=== PATIENT | male | born 1970 | race African-American/Black ===

== ENCOUNTER 2016-08-26 12:13 | Inpatient (IN) | payer OTHER ==
[2016-08-26 13:29] VITALS: BMI 31.0
--- NOTE | 2016-08-26 14:19 | HP ---
Admission ROS [facility] - [facility] Chief Complaint: i need help help to stay in rehab from alcohol,cocaine and marijuana Allergies/Adverse Reactions: Allergies Allergy/AdvReac Type Severity Reaction Status Date / Time Penicillins Allergy Intermediate Hives Verified 08/26/16 14:01 History of Present Illness: this 45 years old male with alcohol,cocaine and marijuana dependence,seeking help for rehab,last treatment in 2012 [facility] nicotine dependence paranoid schizophrenia Exam Limitations: No Limitations - Ebola screening Have you traveled outside of the country in the last 21 days: No Have you had contact with anyone from an Ebola affected area: No Have you been sick,other than usual withdrawal symptoms: No - Review of Systems Constitutional: No Symptoms Reported, Loss of Appetite, Malaise, Changes in sleep EENT: reports: No Symptoms Reported Respiratory: reports: No Symptoms reported, Other (asthma) Cardiac: reports: No Symptoms Reported GI: reports: No Symptoms Reported : reports: No Symptoms Reported Musculoskeletal: reports: No Symptoms Reported, Other (pain in both knees and hips) Integumentary: reports: No Symptoms Reported Patient History - Patient Medical History Hx Anemia: No Hx Asthma: Yes (on albuterol inhaler) Hx Cancer: No Hx Cardiac Disorders: No Hx Congestive Heart Failure: No Hx Hypertension: No Hx Hypercholesterolemia: No Hx Pacemaker: No HX Cerebrovascular Accident: No Hx Seizures: No Hx Dementia: No Hx Diabetes: Yes (no med) Hx Gastrointestinal Disorders: No Hx Liver Disease: No Hx Genitourinary Disorders: No Hx Sexually Transmitted Disorders: No Hx Renal Disease (ESRD): No Hx Thyroid Disease: No Hx Human Immunodeficiency Virus (HIV): No (last 2015) Hx Hepatitis C: No Hx Depression: Yes (on meds) Hx Suicide Attempt: Yes (cut throat in 2003,s/p traheostomy in [facility]) Hx Bipolar Disorder: No Hx Schizophrenia: No Other Medical History: no suicidal,no homicidal - Patient Surgical History Past Surgical History: Yes Other Surgical History: laceration of throat,s/p surgery and tracheostomy - PPD History Previous Implant?: Yes Documented Results: Negative w/o proof PPD to be Administered?: Yes - Smoking Cessation Smoking history: Current every day smoker Have you smoked in the past 12 months: Yes Aproximately how many cigarettes per day: 10 Hx Chewing Tobacco Use: No Initiated information on smoking cessation: Yes 'Breaking Loose' booklet given: 08/26/16 - Substance & Tx. History Hx Alcohol Use: Yes Hx Substance Use: Yes Substance Use Type: Alcohol, Cocaine, Marijuana Hx Substance Use Treatment: Yes (2012 [facility]) - Substances Abused Alcohol Route: Oral Frequency: Daily (1pint of vodka/) Amount used: 1 pint of vodka/40 ozs of beer Age of first use: 16 Date of Last Use: 08/25/16 Cocaine Route: Smoking Frequency: Daily Amount used: 100$ Age of first use: 21 Date of Last Use: 08/25/16 Marijuana/Hashish Route: Smoking Amount used: 10$ Age of first use: 16 Date of Last Use: 08/25/16 Family Disease History - Family Disease History Family History: Denies Family Disease History: Diabetes: Grandparent, Mother, Other: Father (alcohol, ), Mother Admission Physical Exam [facility] - Vital Signs Vital Signs: Vital Signs - 24 hr 08/26/16 13:27 Temperature 96.8 F L Pulse Rate 86 Respiratory 18 Rate Blood Pressure 135/72 - Physical General Appearance: Yes: Within Normal Limits HEENTM: Yes: Within Normal Limits, LOTUS, Pharynx Normal (scar of neck s/p tracheostomy), Other Respiratory: Yes: Lungs Clear, Normal Breath Sounds, No Respiratory Distress Neck: Yes: Within Normal Limits, Other (scar anterior of neck scar from previous tracheostomy) Breast: Yes: Within Normal Limits Cardiology: Yes: Within Normal Limits, Regular Rhythm, Regular Rate, S1, S2 Abdominal: Yes: Within Normal Limits, Normal Bowel Sounds, Non Tender, Flat, Soft Genitourinary: Yes: Within Normal Limits Back: Yes: Muscle Spasm Musculoskeletal: Yes: Within Normal Limits Extremities: Yes: Within Normal Limits Neurological: Yes: staff auditor II-XII NML intact, Fully Oriented, Alert, Motor Strength 5/5 Integumentary: Yes: Within Normal Limits Lymphatic: Yes: Within Normal Limits - Diagnostic (1) Alcohol dependence Current Visit: Yes Status: Acute (2) Cocaine dependence Current Visit: Yes Status: Acute (3) Cannabis dependence Current Visit: Yes Status: Acute (4) Nicotine dependence Current Visit: Yes Status: Acute (5) Asthma Current Visit: Yes Status: Acute (6) Status post tracheostomy Current Visit: Yes Status: Acute (7) Laceration of throat Current Visit: Yes Status: Acute (8) Paranoid schizophrenia Current Visit: Yes Status: Acute Cleared for Admission [facility] - Detox or Rehab Claeared for Rehab Admission: Yes [facility] Breath Alcohol Content Breath Alcohol Content: 0 Urine Drug Screen - Results Drug Screen Negative: No Urine Drug Screen Results: THC-Marijuana, YIN-Cocaine
[2016-08-26] MEDS ORDERED: ACETAMINOPHEN 325 MG TABLET (FP) PO PRN (14:45)
[2016-08-26] MEDS ORDERED: hydrOXYzine PAMOATE 50 MG CAPSULE (FP) PO PRN (14:45)
[2016-08-26] MEDS ORDERED: IBUPROFEN 400 MG TABLET (FP) PO PRN (14:45)
[2016-08-26] MEDS ORDERED: LOPERAMIDE HCL 2 MG CAPSULE PO PRN (14:45)
[2016-08-26] MEDS ORDERED: P-EPHED 60MG/TRIPROLIDI 2.5MG TABLET PO PRN (14:45)
[2016-08-26] MEDS ORDERED: MENTHOL/PHENOL 1 EACH UD MM PRN (14:45)
[2016-08-26] MEDS ORDERED: guaiFENesin/D-METHORPHAN HB 10 ML UNIT-DOSE CUPS PO PRN (14:45)
[2016-08-26] MEDS ORDERED: diphenhydrAMINE HCL 50 MG CAPSULE PO PRN (14:45)
[2016-08-26] MEDS ORDERED: MAG HYDROX/AL HYDROX/SIMETH 30 ML UNIT-DOSE CUP PO PRN (14:45)
[2016-08-26] MEDS ORDERED: MAGNESIUM CITRATE 300 ML BOTTLE PO PRN (14:45)
[2016-08-26] MEDS ORDERED: NICOTINE POLACRILEX 2 MG GUM BUC PRN (14:45)
[2016-08-26] MEDS ORDERED: MAGNESIUM HYDROX 2400MG/30ML ORAL SUSPENSION 30 ML CUP PO PRN (14:45)
[2016-08-26] MEDS ORDERED: ALBUTEROL SO4 6.7 GM HFA INHALER IH PRN (14:51)
[2016-08-26] MEDS: metFORMIN HCL 500 MG TABLET (FP) PO SCH (16:51)
[2016-08-26] MEDS: NICOTINE 21 MG/24 HOURS TOPICAL PATCH TD SCH (18:08)
[2016-08-26 18:19] LABS: MCH 27.1 pg (25.7-33.7); MCHC 32.2 g/dl (32.0-35.9); MEAN CELL VOLUME 84.1 fl (80-96); PLATELET COUNT 338 K/MM3 (134-434); RDW 13.5 % (11.9-15.9)
[2016-08-26 18:21] LABS: URINE APPEARANCE CLEAR; URINE BILIRUBIN NEGATIVE (NEGATIVE); URINE BLOOD NEGATIVE (NEGATIVE); URINE COLOR LTYELLOW; URINE GLUCOSE (UA) NEGATIVE (NEGATIVE); URINE KETONE 1+ (NEGATIVE); URINE LEUK ESTERASE NEGATIVE (NEGATIVE); URINE NITRITE NEGATIVE (NEGATIVE); URINE PROTEIN NEGATIVE (NEGATIVE); URINE UROBILINOGEN NEGATIVE E.U./dl (0.2-1.0)
[2016-08-26 18:33] LABS: ALBUMIN 4.1 g/dl (3.4-5.0); ANION GAP 4 (8-16); CO2 33 mmol/L (21-32); CREATININE 1.2 mg/dL (0.7-1.3); GLUCOSE,RANDOM 69 mg/dL (74-106); SGOT/AST 16 U/L (15-37); SGPT/ALT 23 U/L (12-78)
[2016-08-26 18:34] LABS: ALK PHOS 102 U/L (45-117); BILIRUBIN,TOTAL 0.7 mg/dL (0.2-1.0); TOT PROT 7.9 g/dl (6.4-8.2)
[2016-08-26] MEDS: THIAMINE HCL 100 MG TABLET (FP) PO SCH (23:12)
[2016-08-27] MEDS: metFORMIN HCL 500 MG TABLET (FP) PO SCH ×2 (06:24→17:11)
--- NOTE | 2016-08-27 06:55 | HP ---
Psychiatrist Admission - Data Date of interview: 08/27/16 Admission source: [place] Identifying data: This is the first [facility] for this 45 years old single Black male, father of twin boys, unemployed on SSI, living in [place] residence Medical History: Significant for Asthma, DM and history of surgery(tracheostomy ) for self-inflicted laceration of throat in 2003. Smoked 10 cigarettes daily Psychiatric History: Reports that he started receiving psychiatric treatment at age 21 when she was admitted to [facility] for hearing voices. Reports that he has had multiple subsequent admissions to various institutions notably [facility], [facility] and [place] in 2003 for suicidal attempt by slashing his throat. Most recent admission was in 2008 to [place] for auditory hallucinations in the context of non-compliance with medications. Reports receiving OPD care at [facility] in [place], [place] and he is currently prescribed Cogentin 2 mg po HS, Lurasidone 120 mg po HS, Depakote 1000 mg po HS, Klonopin 1 mg po HS and Haldol Decanoate 200 mg IM Q monthly. He last received the Decanoate injection on 08/18/16 and he will be due on 09/15/16. Reports feeling anxious at present. However, denies experiencing auditory hallucinations as well as SI/HI. Physical/Sexual Abuse/Trauma History: Denies history of emotional, physical or sexual abuse as well as DV relationship Additional Comment: Reports history of multiple previous arrests including one felony conviction. Denies being on parole/probation at present Vital Signs: Vital Signs - 24 hr 08/26/16 08/27/16 08/27/16 13:27 00:30 03:30 Temperature 96.8 F L Pulse Rate 86 Respiratory 18 16 18 Rate Blood Pressure 135/72 Allergies/Adverse Reactions: Allergies Allergy/AdvReac Type Severity Reaction Status Date / Time Penicillins Allergy Intermediate Hives Verified 08/26/16 14:01 Date of last physical exam: 08/26/16 Concur with the findings of this exam: Yes - Substance Abuse/Tx History Hx Alcohol Use: Yes Hx Substance Use: Yes Substance Use Type: Alcohol (Started drinking alcohol at age 16, consumes one pint of vodka and a 40oz of beer daily. Last drink on 08/25/16), Cocaine ( Syarted smoking crack cocaine at age 21, consumes $100 worth daily. Last smoked on 08/25/16), Marijuana (Started smoking marijuana at age 16, consumes $10 worth daily. Last smoked on 08/25/16) Hx Substance Use Treatment: Yes (2 previous inpt detox @ [facility] and inpt rehab @ [facility]) - Admission Criteria Previous failed treatment: Yes Poor recovery environment: Yes Comorbidities: Yes Lacks judgement: Yes Mental Status Exam - Mental Status Exam Alert and Oriented to: Time, Place, Person Cognitive Function: Fair Patient Appearance: Well Groomed Mood: Anxious Affect: Blunted Patient Behavior: Cooperative Speech Pattern: Clear Voice Loudness: Normal Thought Process: Intact, Goal Oriented Thought Disorder: Not Present Hallucinations: Denies Suicidal Ideation: Denies, Past, Plan (Slashed his throat in 2003 due to command auditory hallucinations) Homicidal Ideation: Denies Insight/Judgement: Fair Sleep: Fair Appetite: Good Muscle strength/Tone: Normal Gait/Station: Normal Psychiatric Findings - Problem List ([place] 1, 2,3) (1) Alcohol dependence Current Visit: Yes Status: Acute (2) Cocaine dependence Current Visit: Yes Status: Acute (3) Cannabis dependence Current Visit: Yes Status: Acute (4) Nicotine dependence Current Visit: Yes Status: Acute (5) Paranoid schizophrenia Current Visit: Yes Status: Acute (6) Asthma Current Visit: Yes Status: Acute (7) Status post tracheostomy Current Visit: Yes Status: Acute - Initial Treatment Plan Initial Treatment Plan: 1) Continue Depakote 1000 mg po HS, Latuda 120 mg po HS , Cogentin 2 mg po HS and Haldol Decanoate 200 mg IM Q monthly to be administered on 09/15/16. 2) Monitor progress
[2016-08-27] MEDS: NICOTINE 21 MG/24 HOURS TOPICAL PATCH TD SCH (10:26)
[2016-08-27] MEDS: PRENATAL VITAMINS W/ FOLIC ACID TABLET (FP) PO SCH (10:26)
[2016-08-27 10:41] LABS: HIV 1 & 2 AB NEGATIVE; HIV 1 AGp24 NEGATIVE
[2016-08-27] MEDS ORDERED: DIVALPROEX SODIUM 500 MG TABLET E.C. PO SCH (14:00)
--- NOTE | 2016-08-27 15:48 | EKG ---
Test Reason : Blood Pressure : / mmHG Vent. Rate : 051 BPM Atrial Rate : 051 BPM P-R Int : 138 ms QRS Dur : 092 ms QT Int : 454 ms P-R-T Axes : 031 038 006 degrees QTc Int : 418 ms SINUS BRADYCARDIA NONSPECIFIC T WAVE ABNORMALITY ABNORMAL ECG NO PREVIOUS ECGS AVAILABLE Confirmed by MARKUS SHARMA MD ([id number]) on 08/27/2016 3:48:21 PM Referred By: Confirmed By:MARKUS SHARMA MD
[2016-08-27] MEDS ORDERED: LURASIDONE HCL 40 MG TABLET PO SCH (22:00)
[2016-08-27] MEDS: DIVALPROEX SODIUM 500 MG TABLET E.C. PO SCH (22:56)
[2016-08-27] MEDS: LURASIDONE HCL 40 MG TABLET PO SCH (22:56)
[2016-08-27] MEDS: BENZTROPINE MESYLATE 1 MG TABLET (FP) PO SCH (22:56)
[2016-08-27] MEDS: THIAMINE HCL 100 MG TABLET (FP) PO SCH (22:57)
[2016-08-28] MEDS: metFORMIN HCL 500 MG TABLET (FP) PO SCH ×2 (06:28→17:02)
[2016-08-28 07:13] VITALS: TEMP 98
[2016-08-28] MEDS: NICOTINE 21 MG/24 HOURS TOPICAL PATCH TD SCH (10:20)
[2016-08-28] MEDS: PRENATAL VITAMINS W/ FOLIC ACID TABLET (FP) PO SCH (10:20)
--- NOTE | 2016-08-28 13:51 | PN ---
S Progress Note Note: HAS DISCHARGE FROM PENIS ,ON EXAMINATION NO ULCER,NO DISCHARGE NOTE,C/S TAKING FROM FROM THE PENILE URETHRA AT TIP SEND FOR C/S TO START ON VIBRAMYCIN 100 MGS PO BID FOR NON SPECIFIC URETHRITIS
[2016-08-28] MEDS: DOXYCYCLINE HYCLATE 100 MG TABLET PO SCH (17:02)
[2016-08-28] MEDS: BENZTROPINE MESYLATE 1 MG TABLET (FP) PO SCH (21:13)
[2016-08-28] MEDS: DIVALPROEX SODIUM 500 MG TABLET E.C. PO SCH (21:13)
[2016-08-28] MEDS: THIAMINE HCL 100 MG TABLET (FP) PO SCH (21:13)
[2016-08-28] MEDS: LURASIDONE HCL 40 MG TABLET PO SCH (21:14)
[2016-08-29] MEDS: metFORMIN HCL 500 MG TABLET (FP) PO SCH ×2 (07:04→16:48)
[2016-08-29 07:08] VITALS: BP 115/71; PULSE 51
[2016-08-29] MEDS: NICOTINE 21 MG/24 HOURS TOPICAL PATCH TD SCH (10:12)
[2016-08-29] MEDS: DOXYCYCLINE HYCLATE 100 MG TABLET PO SCH ×2 (10:12→17:43)
[2016-08-29] MEDS: PRENATAL VITAMINS W/ FOLIC ACID TABLET (FP) PO SCH (10:12)
[2016-08-29] MEDS ORDERED: PT OWN MED DRAWER 7, Y5N ONE (17:58)
--- NOTE | 2016-08-29 17:59 | PN ---
S Progress Note Note: PATIENT DID NOT WANT TO COMPLETE TREATMENT,SIGNED RELEASE AMA,DID NOT WANT TO WAIT,PSYCHIATRIST PRESS BREAKER NOTIFIED BY NURSE
[2016-09-15] MEDS ORDERED: HALOPERIDOL DECANOATE 100 MG/ML IM SCH (10:00)
== END 2016-08-29 17:55 | disposition left against medical advice (07) | DRG 770 ==
LOC: YASAS 12:13 → Y3W 14:16
PROVIDERS: ADMIT Psychiatry & Neurology Psychiatry; ATTEND Psychiatry & Neurology Psychiatry
PROC: HZ42ZZZ Group Counseling for Substance Abuse Treatment, Cognitive-Behavioral (ICD-10-PCS; principal; 2016-08-29)
DX: F10.230 Alcohol dependence with withdrawal, uncomplicated (principal); F14.20 Cocaine dependence, uncomplicated; F12.20 Cannabis dependence, uncomplicated; F17.210 Nicotine dependence, cigarettes, uncomplicated; F20.0 Paranoid schizophrenia; J45.909 Unspecified asthma, uncomplicated; E11.9 Type 2 diabetes mellitus without complications
CPT/HCPCS: 36415; 80053; 81003; 85027; 85660; 86593; 86803; 87070; 87205; 87389; 93005; 93010